=== PATIENT | female | born 1955 | race Caucasian/White ===

== ENCOUNTER 2022-09-07 08:06 | Observation (INO) | payer MEDICARE ==
[2022-08-31 12:34] VITALS: BP 120/62
[2022-09-07] VITALS (31 sets, daily range): BP systolic 100–150; BP diastolic 45–87
[~2022-09-07] VITALS: Ht 160 cm; Wt 72.0 kg
[~2022-09-07 08:06] MED LIST: ALEN70TA80 PO; ATOR10TA69 PO; CALC-866 PO; CALCIUM MINI PO; CEFAZOLIN SODIUM 2 GM VIAL IVPB SCH; ESCI-8 PO; FERR-82 PO; MELO-108 PO; ROPI0.5T7 PO; TRAM50TA4 PO; TRANEXAMIC ACID 1000MG/10ML IV SCH
[2022-09-07] MEDS: LACTATED RINGERS 1000ML 1,000 ML IV SCH ×3 (08:47→22:02)
[2022-09-07] MEDS ORDERED: ALLERGY RELIEF NASAL (08:52)
[2022-09-07 08:56] LABS: BASOPHILS % (AUTO) 1.6 % (0.0-5.0); HEMATOCRIT 44.1 % (36-48); LYMPHOCYTES % (AUTO) 27.1 % (21.0-51.0); MEAN CORPUSCULAR HEMOGLOBIN 29.4 pg (27.0-33.0); MEAN CORPUSCULAR HGB CONC 32.4 g/dL (32.0-36.0); MEAN CORPUSCULAR VOLUME 90.7 fL (79-99); MONOCYTES % (AUTO) 9.4 % (3.0-13.0); NEUTROPHILS % (AUTO) 59.7 % (40.0-77.0); PLATELET COUNT (AUTO) 219 K/uL (130-400); RED BLOOD CELL COUNT(AUTO) 4.86 MIL/uL (4.00-5.50); RED CELL DISTRIBUTION WIDTH 12.8 % (11.0-15.5)
[2022-09-07 09:13] LABS: INR 0.94 (0.85-1.15); PROTHROMBIN TIME 10.3 SEC (9.6-11.6)
[2022-09-07 09:14] LABS: PARTIAL THROMBOPLASTIN TIME 25.1 SEC (26.3-35.5)
[2022-09-07] MEDS ORDERED: MORPHINE 4 MG SYG IVP PRN (13:00)
[2022-09-07] MEDS ORDERED: ONDANSETRON 4MG INJ IVP PRN (13:00)
[2022-09-07] MEDS ORDERED: KCL 20 MEQ ERTAB PO PRN (13:00)
[2022-09-07] MEDS ORDERED: HYDROCODONE/ACETAMINOPHEN 5/325 MG TAB PO PRN (13:00)
[2022-09-07] MEDS ORDERED: HYDROCODONE/ACETAMINOPHEN 10/325 MG TAB PO PRN (13:00)
[2022-09-07] MEDS ORDERED: POTASSIUM CHLORIDE 20MEQ/100ML 100 ML IV PRN (13:00)
[2022-09-07] MEDS ORDERED: LIDOCAINE HCL-MPF 1% 2ML VIAL IV PRN (13:00)
[2022-09-07] MEDS ORDERED: POTASSIUM CHLORIDE 10% ELIXIR 20 MEQ/15 ML UDCUP PO PRN (13:00)
[2022-09-07] MEDS ORDERED: PROPOFOL 10 MG/ML 20ML VIAL IV ONE (13:56)
[2022-09-07] MEDS ORDERED: MIDAZOLAM HCL 1 MG/ML 2ML VIAL ONE (13:56)
[2022-09-07] MEDS ORDERED: FENTANYL CITRATE PF 50 MCG/1 ML 2ML VIAL ONE ×3 (13:57→16:27)
[2022-09-07] MEDS ORDERED: CEFAZOLIN SODIUM 2 GM VIAL IVPB ONE (14:05)
[2022-09-07] MEDS ORDERED: LIDOCAINE PF 100MG/5ML (2%) SYRINGE 5ML ONE (14:06)
[2022-09-07] MEDS ORDERED: ROCURONIUM 10MG/1ML SYR 10 MG/ML ML ONE (14:09)
[2022-09-07] MEDS ORDERED: MEPERIDINE-PF 25 MG/ML SYG ONE ×3 (14:17→17:15)
[2022-09-07] MEDS ORDERED: TRANEXAMIC ACID 1000MG/10ML ONE (14:36)
[2022-09-07] MEDS ORDERED: TRANEXAMIC ACID 1000MG/10ML IV ONE (14:40)
[2022-09-07] MEDS ORDERED: ONDANSETRON 4MG INJ ONE (15:02)
[2022-09-07] MEDS ORDERED: PHENYLEPHRINE HCL 10 MG/ML 1ML VIAL IV ONE (15:13)
[2022-09-07] MEDS ORDERED: ROPIVACAINE 0.5% 5MG/ML 30ML IJ ONE (16:13)
[2022-09-07] MEDS ORDERED: LIDOCAINE 2%-EPI 1:200,000 20 ML VIAL IJ ONE (16:14)
[2022-09-07] MEDS ORDERED: NEOSTIGMINE 5MG/5ML SYR IV ONE (16:22)
[2022-09-07] MEDS ORDERED: GLYCOPYRROLATE 1 MG/5 ML SYRINGE ONE (16:22)
[2022-09-07] MEDS: ACETAMINOPHEN 1,000 MG/100 ML VIAL IV SCH ×2 (17:12→23:19)
[2022-09-07] MEDS: TRAMADOL HCL 50 MG TABLET PO SCH ×2 (19:05→23:20)
[2022-09-07] MEDS ORDERED: MELOXICAM 7.5 MG TABLET PO SCH (21:00)
[2022-09-07] MEDS ORDERED: ROPINIROLE HCL 1 MG TABLET PO SCH (21:00)
[2022-09-07] MEDS: FAMOTIDINE 20MG TAB PO SCH (22:08)
[2022-09-07] MEDS: 0.9%NACL 1000ML 1,000 ML IV SCH (22:09)
[2022-09-07] MEDS: CEFAZOLIN SODIUM 1 GM VIAL IVP SCH (22:09)
[2022-09-08] VITALS: BP 129/73
[2022-09-08 00:45] VITALS: BP 104/51
[2022-09-08 05:20] LABS: HEMATOCRIT 35.4 % (36-48); MEAN CORPUSCULAR HEMOGLOBIN 29.4 pg (27.0-33.0); MEAN CORPUSCULAR HGB CONC 31.4 g/dL (32.0-36.0); MEAN CORPUSCULAR VOLUME 93.7 fL (79-99); RED BLOOD CELL COUNT(AUTO) 3.78 MIL/uL (4.00-5.50); RED CELL DISTRIBUTION WIDTH 12.8 % (11.0-15.5); WHITE BLOOD COUNT (AUTO) 6.1 K/uL (4.8-10.8)
[2022-09-08] MEDS ORDERED: ACETAMINOPHEN 1,000 MG/100 ML VIAL IV ONE (05:21)
[2022-09-08] MEDS: ACETAMINOPHEN 1,000 MG/100 ML VIAL IV SCH (05:22)
[2022-09-08] MEDS: TRAMADOL HCL 50 MG TABLET PO SCH ×2 (05:22→11:48)
[2022-09-08 05:29] LABS: CREATININE 0.9 mg/dL (0.5-1.5); POTASSIUM 4.6 mmol/L (3.5-5.1)
[2022-09-08] MEDS: CEFAZOLIN SODIUM 1 GM VIAL IVP SCH (06:08)
[2022-09-08 07:40] VITALS: BP 104/52
[2022-09-08] MEDS: FAMOTIDINE 20MG TAB PO SCH (08:23)
[2022-09-08] MEDS ORDERED: CITALOPRAM 20 MG TABLET PO SCH (09:00)
[2022-09-08] MEDS ORDERED: POLYETHYLENE GLYCOL 3350 17 GM POWD.PACK PO SCH (09:00)
[2022-09-08] MEDS: 0.9%NACL 1000ML 1,000 ML IV SCH (09:00)
[2022-09-08 11:00] VITALS: BP 140/62
[2022-09-08] MEDS ORDERED: ASPIRIN 81 MG EC TAB PO SCH (21:00)
[2022-09-09] MEDS ORDERED: FERROUS SULFATE 325 MG TABLET.DR PO SCH (09:00)
[2022-09-10] MEDS ORDERED: BISACODYL 10 MG SUPP.RECT RC PRN (13:00)
== END 2022-09-08 16:00 | disposition home or self-care (01) ==
LOC: DAH 08:06 → DAHIP 08:07 → DAH 08:07 → 4AH 19:58
PROVIDERS: ADMIT Orthopaedic Surgery; ATTEND Orthopaedic Surgery
DX: M17.11 Unilateral primary osteoarthritis, right knee (principal); Z20.822 Contact with and (suspected) exposure to COVID-19; E78.00 Pure hypercholesterolemia, unspecified; M81.0 Age-related osteoporosis without current pathological fracture; R29.6 Repeated falls; Z96.652 Presence of left artificial knee joint; Z79.899 Other long term (current) drug therapy
CPT/HCPCS: 87426; 27447; 20985; 96374; 96376 ×2; 96375; 85025; 85610; 85730; 36415 ×2; 80048; 85027; 97161; 97039 ×2; 97116 ×2; 97530 ×2; A6260; C1776 ×4; G0378 ×21; A4663; J7030; J7120; J3010 ×3; J0690 ×4; J3490 ×5; J2710; J2001; J2250; J2704; J2405 ×2; J2270; J2175 ×3; J2795; J2370; A6223; G0168; A4649 ×3; A6212; A5120; A4215; A4223; A4222; A4221